=== PATIENT | male | born 1960 | race Two or more races ===

== ENCOUNTER 2021-11-15 12:38 | Emergency (ER) | payer OTHER ==
[~2021-11-15] VITALS: Ht 172.7 cm; Wt 90.7 kg
[2021-11-15 12:38] VITALS: BP 152/102
--- NOTE | 2021-11-15 12:43 | NUR ---
BIBS C/O GETTING A EAR BUD STUCK IN HIS R EAR. DENIES PAIN. AAOX4, BREATHING EVEN AND UNLABORED, HEARING IS NORMAL.
--- NOTE | 2021-11-15 12:55 | NUR ---
AT BEDSIDE REMOVING EARBUD.
--- NOTE | 2021-11-15 13:14 | NUR ---
Patient discharged to home in stable condition. Written and verbal after care instructions given. Patient verbalizes understanding of instruction.
== END 2021-11-15 13:15 | disposition home or self-care (01) ==
LOC: ER 12:52
DX: T16.1XXA Foreign body in right ear, initial encounter (principal); X58.XXXA Exposure to other specified factors, initial encounter; Y93.89 Activity, other specified; Y92.89 Other specified places as the place of occurrence of the external cause; Y99.8 Other external cause status